=== PATIENT | male | born 1985 | race Two or more races ===

== ENCOUNTER 2019-12-30 17:43 | Inpatient (IN) | payer OTHER ==
[~2019-12-30] VITALS: Ht 177.8 cm; Wt 87.1 kg
[2019-12-30 18:31] LABS: Urine Bacteria NONE SEEN /hpf (None Seen); Urine Blood Negative /uL (Negative); Urine Specific Gravity 1.014 (1.001-1.035); Urine WBC 1 /hpf (0 - 3)
[2019-12-30 19:51] LABS: Basophils # (auto) 0.1 10 ^3/uL (0-0.2); Basophils % (auto) 0.8 % (0.0-2.0); Eosinophils # (auto) 0.3 10 ^3/uL (0-0.8); Eosinophils % (auto) 3.7 % (0.0-7.0); Hematocrit 45.2 % (41.0-53.0); Hemoglobin 15.8 g/dL (13.5-17.5); Lymphocytes # (auto) 1.8 10 ^3/uL (0.4-5.4); Lymphocytes % (auto) 26.9 % (10.0-50.0); Mean Corpuscular Hemoglobin 30.4 pg (28.0-32.0); Mean Corpuscular Volume 86.8 fL (80.0-100.0); Monocytes # (auto) 1.1 10 ^3/uL (0-1.3); Monocytes % (auto) 15.4 % (0.0-12.0); Neutrophils # (auto) 3.6 10 ^3/uL (1.6-8.6); Neutrophils % (auto) 53.2 % (37.0-80.0); Nucleated Red Blood Cells % 0.1 %; Platelet Count (auto) 231 10^3/uL (140-450); Red Blood Cells 5.21 10^6/uL (4.5-5.90); Red Cell Distribution Width 13.8 % (11.8-14.3); White Blood Cell 6.9 10^3/uL (4.4-10.8)
[2019-12-30 20:15] LABS: Albumin 4.2 g/dL (3.4-5.0); Calcium 8.7 mg/dL (8.5-10.1); Potassium 4.1 mmol/L (3.5-5.1)
[2019-12-30 20:18] LABS: BUN/Creatinine Ratio 14.4; Bilirubin, Total 0.6 mg/dL (0.2-1.0); Total Protein 8.6 g/dL (6.4-8.2)
[2019-12-30] MEDS ORDERED: IOHEXOL 300 MG/ML 100ML BOTTLE IJ ONE (20:53)
[2019-12-30] MEDS ORDERED: PIPERACILLIN-TAZOB 3.375GM 100 ML IV ONE (23:00)
[2019-12-30] MEDS ORDERED: ONDANSETRON HCL 4 MG/2 ML VIAL IV ONE (23:15)
[2019-12-30] MEDS ORDERED: MORPHINE SULF INJ 2 MG/ML SYRINGE 1ML IV ONE (23:15)
[2019-12-31] MEDS ORDERED: VANCOMYCIN PER PHARMACY 0 MG IV SCH (00:45)
[2019-12-31] MEDS ORDERED: NITROGLYCERIN 0.4 MG SL TAB SL PRN (00:45)
[2019-12-31] MEDS ORDERED: MORPHINE SULF INJ 2 MG/ML SYRINGE 1ML IV PRN (00:45)
[2019-12-31] MEDS ORDERED: HYDROcodone-ACET 10/325MG TAB PO PRN (00:45)
[2019-12-31] MEDS ORDERED: VANCOMYCIN 1GM/250ML 250 ML IV ONE (01:00)
[2019-12-31] MEDS: HYDROcodone-ACET 10/325MG TAB PO PRN ×4 (04:11→20:16)
[2019-12-31 08:44] VITALS: BP 104/67
[2019-12-31 13:00] VITALS: BP 101/66
[2019-12-31] MEDS: VANCOMYCIN 1GM/250ML 250 ML IV SCH (15:20)
[2019-12-31 16:52] VITALS: BP 120/73
[2019-12-31 18:15] LABS: Hepatitis A Ab IgM Negative; Hepatitis B Core IgM Negative
[2019-12-31 18:16] LABS: Hepatitis B Surface Antigen Negative (Negative)
[2019-12-31 18:22] LABS: Hepatitis C Antibody Positive (Negative)
[2019-12-31 22:00] VITALS: BP 117/72
[2020-01-01] MEDS: VANCOMYCIN 1GM/250ML 250 ML IV SCH ×2 (03:03→14:39)
[2020-01-01 05:00] VITALS: BP 110/73
[2020-01-01 05:59] LABS: Basophils # (auto) 0 10 ^3/uL (0-0.2); Basophils % (auto) 0.7 % (0.0-2.0); Eosinophils # (auto) 0.4 10 ^3/uL (0-0.8); Eosinophils % (auto) 5.2 % (0.0-7.0); Hematocrit 43.5 % (41.0-53.0); Hemoglobin 14.9 g/dL (13.5-17.5); Lymphocytes # (auto) 2.3 10 ^3/uL (0.4-5.4); Mean Corpuscular Hemoglobin 29.9 pg (28.0-32.0); Mean Corpuscular Hgb Conc. 34.3 g/dL (32.0-36.0); Mean Corpuscular Volume 87.2 fL (80.0-100.0); Monocytes # (auto) 0.9 10 ^3/uL (0-1.3); Monocytes % (auto) 12.6 % (0.0-12.0); Neutrophils # (auto) 3.3 10 ^3/uL (1.6-8.6); Neutrophils % (auto) 47.5 % (37.0-80.0); Nucleated Red Blood Cells % 0.2 %; Platelet Count (auto) 229 10^3/uL (140-450); Red Blood Cells 4.99 10^6/uL (4.5-5.90); Red Cell Distribution Width 13.8 % (11.8-14.3); White Blood Cell 6.9 10^3/uL (4.4-10.8)
[2020-01-01 09:00] VITALS: BP 117/79
[2020-01-01] MEDS: ENOXAPARIN SOD 40 MG/0.4 ML SYRINGE SC SCH (09:58)
[2020-01-01 12:49] VITALS: BP 112/65
[2020-01-01] MEDS: HYDROcodone-ACET 10/325MG TAB PO PRN (15:59)
[2020-01-01 17:16] VITALS: BP 110/70
[2020-01-01 20:15] VITALS: BP 111/73
[2020-01-01 22:00] VITALS: BP 111/73
[2020-01-02] MEDS: VANCOMYCIN 1GM/250ML 250 ML IV SCH ×3 (00:56→21:00)
[2020-01-02 05:11] VITALS: BP 120/80
[2020-01-02 05:14] VITALS: BP 109/61
[2020-01-02 06:15] LABS: BUN/Creatinine Ratio 10.8; Calcium 8.5 mg/dL (8.5-10.1); Potassium 3.8 mmol/L (3.5-5.1)
[2020-01-02 09:34] VITALS: BP 115/77
[2020-01-02] MEDS: ENOXAPARIN SOD 40 MG/0.4 ML SYRINGE SC SCH (10:49)
[2020-01-02 12:58] VITALS: BP 114/74
[2020-01-02 17:27] VITALS: BP 118/78
[2020-01-02 22:03] VITALS: BP 119/79
[2020-01-03 04:43] VITALS: BP 117/69
[2020-01-03] MEDS: VANCOMYCIN 1GM/250ML 250 ML IV SCH (08:03)
[2020-01-03 09:00] VITALS: BP 117/72
[2020-01-03] MEDS: ENOXAPARIN SOD 40 MG/0.4 ML SYRINGE SC SCH (11:02)
[2020-01-03 12:00] VITALS: BP 114/84
[2020-01-03] MEDS ORDERED: LEVO500T21 PO (13:13)
[2020-01-03] MEDS ORDERED: VANCOMYCIN 1GM/250ML 250 ML IV SCH (14:00)
[2020-01-03 14:38] VITALS: BP 117/72
== END 2020-01-03 18:00 | DRG 728 ==
LOC: ER 17:43 → EEVIPCON 17:43 → OVERFLOW 17:44 → WEST WING 12-31 08:30
PROVIDERS: ADMIT Internal Medicine; ATTEND Internal Medicine
DX: N49.2 Inflammatory disorders of scrotum (principal); R33.9 Retention of urine, unspecified; B19.20 Unspecified viral hepatitis C without hepatic coma; Z83.3 Family history of diabetes mellitus; Z88.5 Allergy status to narcotic agent; Z88.2 Allergy status to sulfonamides
CPT/HCPCS: 36415; 72193; 76870; 80048; 80053; 80074; 80202; 81001; 82565; 82962; 83605; 85025; 87040; 87086; 96365; 96366; 96367; 96375; G0378; J2405; J2543